=== PATIENT | female | born 1935 | race Caucasian/White ===

== ENCOUNTER → 2016-09-28 15:38 | Emergency (ER) | payer MEDICARE ==
--- NOTE | ~2016-09-28 | CR211 ---
[facility] A Service of [facility] & [facility] RADIOLOGY TEXT RESULTS PATIENT: JUAN CISNEROS LOCATION: [facility] : 35 UNIT #: [id number] AGE: [address]: Dharmesh Alan MD SEX: F ORDER DR: [id number] [facility] [address] [place], [place] [address] [id number] E MR#: [id number] Acc #: [id number] NAME: JUAN CISNEROS : 1935 SEX: F STUDY DATE/TIME: 09/28/2016 14:46 UNIT: [facility] ROOM: STUDY DESCRIPTION: CR Ribs Uni 2 View W PA Ch Rt Attending Physician: Dharmesh Alan M.D. Ordering Physician: Dharmesh Alan M.D. Primary Care Physician: Wyatt Moore Jr., M.D. MEDICAL IMAGING REPORT This report is preliminary unless electronic signature is present EXAM Right ribs, 7 views. HISTORY Right rib pain after fall on right chest injury 3 days ago. FINDINGS 7 views of the right ribs demonstrate fracture of the lateral right eighth rib with 2 mm separation of the fracture fragment. No pneumothorax. No focal airspace infiltrates. Mild cardiac enlargement. Lower cervical fusion. Dictated by... Greyson Newby M.D. THIS IS AN ELECTRONICALLY VERIFIED REPORT Greyson Newby M.D. at 09/28/2016 11:42 PM ELLIOTT/arlene TD: 09/28/2016 16:06 JOB #: [id number] MEDICAL IMAGING REPORT Page 1 of 1 COPY
[~2016-09-28 15:38] MED LIST: AMLODIPINE BESY10 MG PO; ASPIRIN81 M2 PO; BAYER ASPIRIN325 M1 PO; CALCIUM + D 6001 TA1 PO; EFFEXOR75 MG PO; FENOFIBRATE160 MG PO; FISH OIL 1,2001 EAC1 PO; OCUVITE LUTEIN1 CA1 PO; OMEGA-3 KRILL1 EAC3 PO; PLAVIX PO; PRAVACHOL80 MG PO; SPIRONOLACTONE-1 TAB PO; TRAMADOL HCL50 M1 PO; VITAMIN B-122000 MC1 PO; VITAMIN B12-FO1 EACH PO
== END | disposition home or self-care (01) ==
LOC: CED 15:38
DX: S22.31XA Fracture of one rib, right side, initial encounter for closed fracture (principal); I10 Essential (primary) hypertension; J44.9 Chronic obstructive pulmonary disease, unspecified; Z88.5 Allergy status to narcotic agent; Z79.899 Other long term (current) drug therapy; W10.9XXA Fall (on) (from) unspecified stairs and steps, initial encounter; Y92.009 Unspecified place in unspecified non-institutional (private) residence as the place of occurrence of the external cause
CPT/HCPCS: 71101; 99283